=== PATIENT | female | born 1955 | race Two or more races ===

== ENCOUNTER 2021-09-04 14:10 | Inpatient (IN) | payer OTHER ==
[~2021-09-04] VITALS: Ht 154.9 cm; Wt 102.5 kg
--- NOTE | 2021-09-04 14:15 | NUR ---
Recived pt 65 yrs female came from home accommpay by christina c/o dizzness sarted yesterday no weekness or difficety Seen by dr. yen EKG done
--- NOTE | 2021-09-04 14:44 | NUR ---
blood drow by lab tach
[2021-09-04] MEDS ORDERED: IV NS 0.9% 1,000 ML BAG IV ONE (15:00)
[2021-09-04] MEDS ORDERED: MECLIZINE HCL 12.5 MG TABLET PO ONE ×2 (15:00→17:00)
[2021-09-04] MEDS ORDERED: MECLIZINE HCL 25 MG TABLET ONE ×2 (15:08→17:49)
[2021-09-04 15:12] LABS: BASOPHILS # (AUTO) 0.1 K/uL (0.0-0.2); BASOPHILS % (AUTO) 0.7 % (0.0-2.0); EOSINOPHILS % (AUTO) 0.8 % (0.0-6.0); HEMATOCRIT 31 % (33-45); HEMOGLOBIN 10.5 g/dL (11.5-14.8); LYMPHOCYTES % (AUTO) 20.4 % (20.0-44.0); MEAN CORPUSCULAR HGB CONC 34 g/dl (31.0-36.0); MEAN CORPUSCULAR VOLUME 88 fL (82-100); MONOCYTES # (AUTO) 0.6 K/uL (0.1-1.30); MONOCYTES % (AUTO) 6.5 % (2.0-12.0); NEUTROPHILS # (AUTO) 6.9 K/uL (1.8-8.9); NEUTROPHILS % (AUTO) 71.6 % (43.0-81.0); PLATELET COUNT (AUTO) 337 K/uL (150-450); RED BLOOD CELL COUNT(AUTO) 3.48 MIL/uL (4.0-5.2); WHITE BLOOD COUNT (AUTO) 9.6 K/uL (4.3-11.0)
--- NOTE | 2021-09-04 15:15 | NUR ---
ct scan done of head no dizzness or dicomort at this time
[2021-09-04 15:41] LABS: CALCIUM, SERUM 8.7 mg/dL (8.5-10.1); CARBON DIOXIDE 26 mmol/L (21-32); CHLORIDE 97 mmol/L (98-107); CREATININE 1.1 mg/dL (0.6-1.3); GLUCOSE 283 mg/dL (74-106); POTASSIUM 3.6 mmol/L (3.5-5.1); SODIUM SERUM 135 mmol/L (136-145); UREA NITROGEN, BLOOD 18 mg/dL (7-18)
[2021-09-04 15:46] LABS: ALANINE AMINOTRANSFERASE 23 U/L (12-78); ALBUMIN 3.5 g/dL (3.4-5.0); ALKALINE PHOSPHATASE 73 U/L (46-116); ASPARTATE AMINOTRANSFERASE 10 U/L (15-37); BILIRUBIN,TOTAL 0.2 mg/dL (0.2-1.0); TOTAL PROTEIN, SERUM 7.5 g/dL (6.4-8.2)
--- NOTE | 2021-09-04 16:21 | NUR ---
pt condition stable no pain dizzneses come and goses
--- NOTE | 2021-09-04 16:56 | NUR ---
winstonte to concepcion shannon cloudy color ua send to lab
[2021-09-04 17:55] LABS: BILIRUBIN,URINE NEGATIVE (NEGATIVE); COLOR,URINE YELLOW (YELLOW); LEUKOCYTE ESTERASE ,URINE NEGATIVE (NEGATIVE); NITRITE, URINE NEGATIVE (NEGATIVE); PROTEIN,URINE NEGATIVE (NEGATIVE); UGLUCOSE >=1000 mg/dL (NEGATIVE); UROBILINOGEN,URINE 0.2 EU/dL (0.2)
[2021-09-04 18:17] LABS: BACTERIA,URINE None seen /HPF (None Seen); RBC,URINE 0-2 /HPF (0-2); WBC,URINE 0-2 /HPF (0-3)
--- NOTE | 2021-09-04 18:25 | NUR ---
c/o dizzness not resolve revaluated by examine pt spook with pt and kaelyner vs stable
--- NOTE | 2021-09-04 19:29 | NUR ---
vs fourth hand off to SWAPNIL RN AT BED side
--- NOTE | 2021-09-04 19:41 | NUR ---
PT IS RESTING COMFORTABLY IN BED, DENIES ANY PAIN AT TIME. PT STATES SHE STILL FEELS DIZZY , WILL NOTIFY .
--- NOTE | 2021-09-04 19:41 | NUR ---
RECEIVED REPORT FROM ANGEL REYNAGA FOR DEANGELO
--- NOTE | 2021-09-04 19:42 | NUR ---
COVID ANTIGEN SWAB COLLECTED AND SENT TO LAB
--- NOTE | 2021-09-04 21:13 | NUR ---
ASSIGNED TO 309-2
--- NOTE | 2021-09-04 21:51 | NUR ---
REPORT GIVEN TO EVAN REYNAGA FOR DEANGELO
[2021-09-04] MEDS ORDERED: ONDANSETRON HCL/PF 4 MG/2 ML VIAL IVP PRN (22:00)
[2021-09-04] MEDS ORDERED: ACETAMINOPHEN 325 MG TABLET PO PRN (22:00)
[2021-09-04] MEDS ORDERED: Z GUARD REMEDY 4 OZ OINT TP PRN (22:00)
[2021-09-04] MEDS ORDERED: ENOXAPARIN SODIUM 40 MG/0.4 ML DISP.SYRIN SQ SCH (22:00)
[2021-09-04] MEDS ORDERED: MECLIZINE HCL 12.5 MG TABLET PO PRN (22:00)
[2021-09-04] MEDS ORDERED: DIAZEPAM 5 MG TABLET PO PRN (22:00)
[2021-09-04] MEDS ORDERED: DEXTROSE 50%-WATER 50 ML DISP.SYRIN IV PRN (22:00)
[2021-09-04] MEDS ORDERED: AMLO-213 PO (22:01)
[2021-09-04] MEDS ORDERED: METF-442 PO (22:01)
[2021-09-04] MEDS ORDERED: LOSA100T31 PO (22:01)
[2021-09-04] MEDS ORDERED: HYDR25TA4 PO (22:01)
[2021-09-04] MEDS ORDERED: INSU100V7 SQ (22:01)
[2021-09-04] MEDS ORDERED: INSU100C10 SQ (22:01)
[2021-09-04] MEDS: BLOOD SUGAR DIAGNOSTIC 1 EACH STRIP IN SCH (22:49)
[2021-09-04] MEDS: INSULIN REGULAR, HUMAN 100 UNIT/ML 3 ML VIAL SQ PRN (22:51)
[2021-09-04] MEDS: IV NS 0.9% 1,000 ML IV PRN (22:55)
[2021-09-04 23:00] VITALS: BP 142/73
--- NOTE | 2021-09-04 23:27 | NUR ---
MS/TELE/RN RECEIVED PATIENT FROM [facility] BY SIMONESO AT AROUND 2200. PATIENT WAS AWAKE, ALERT, AND ORIENTED, COMFORTABLE, NO C/O PAIN, NO DISTRESS NOTED, WITH MILD DIZZINESS. APPLIED TELE BOX MONITOR, SINUS RHYTHM, ADMISSION DONE, PHYSICAL ASSESSMENT DONE, TAUGHT THE USE OF CALL LIGHT, VERBALISED UNDERSTANDING, AND PLACED IT AT BEDSIDE WITHIN REACH, PLAN OF CARE DISCUSSED, VERBALISED UNDERSTANDING AND AGREEMENT, MD ORDERS CARRIED OUT, FALL RISK SECONDARY TO DIZZINESS, FALL PRECAUTIONS PER PROTOCOL IMPLEMENTED, ALL NEEDS ATTENDED, WILL MONITOR.
[2021-09-05] VITALS: BP 134/74
--- NOTE | 2021-09-05 00:54 | NUR ---
MS/TELE/RN PATIENT IS SLEEPING AT THIS TIME, APPEAR COMFORTABLE, NO SIGNS OF DISTRESS NOTED, CALL LIGHT IN REACH, WILL CONTINUE TO MONITOR.
[2021-09-05 04:00] VITALS: BP 130/65
[2021-09-05 06:32] LABS: BASOPHILS % (AUTO) 0.6 % (0.0-2.0); EOSINOPHILS % (AUTO) 2.6 % (0.0-6.0); HEMATOCRIT 29 % (33-45); HEMOGLOBIN 9.9 g/dL (11.5-14.8); LYMPHOCYTES # (AUTO) 2.8 K/uL (0.8-4.8); MEAN CORPUSCULAR HGB CONC 34 g/dl (31.0-36.0); MEAN CORPUSCULAR VOLUME 88 fL (82-100); MONOCYTES # (AUTO) 0.5 K/uL (0.1-1.30); MONOCYTES % (AUTO) 6.7 % (2.0-12.0); NEUTROPHILS # (AUTO) 3.5 K/uL (1.8-8.9); NEUTROPHILS % (AUTO) 50.1 % (43.0-81.0); PLATELET COUNT (AUTO) 319 K/uL (150-450); RED BLOOD CELL COUNT(AUTO) 3.35 MIL/uL (4.0-5.2); WHITE BLOOD COUNT (AUTO) 6.9 K/uL (4.3-11.0)
[2021-09-05] MEDS: INSULIN REGULAR, HUMAN 100 UNIT/ML 3 ML VIAL SQ PRN ×2 (06:49→11:37)
[2021-09-05] MEDS: BLOOD SUGAR DIAGNOSTIC 1 EACH STRIP IN SCH ×2 (06:49→11:35)
--- NOTE | 2021-09-05 06:53 | NUR ---
MS/TELE/RN PATIENT IS AWAKE, ALERT, ORIENTED, NO CHANGE IN CONDITION, ALL NEEDS ATTENDED AT THIS TIME, WILL CONTINUE TO MONITOR.
[2021-09-05 07:08] LABS: CALCIUM, SERUM 8.2 mg/dL (8.5-10.1); CREATININE 0.9 mg/dL (0.6-1.3); PHOSPHORUS 3.8 mg/dL (2.5-4.9); POTASSIUM 3.9 mmol/L (3.5-5.1)
[2021-09-05] MEDS ORDERED: MECL-182 PO (07:20)
--- NOTE | 2021-09-05 07:30 | NUR ---
TELE/RN RECEIVED PATIENT IN BED AWAKE. PATIENT IS ALERT, AND ORIENTED TIMES 4, ARMENIAN SPEAKER AND LITTLE [place]INHAL[place] SPEAKER. NO C/O PAIN, NO DISTRESS NOTED, WITH MILD DIZZINESS. ON TELE MONITOR . IV SITE ON RIGHT HAND #20 INTACT. ASKED PATIENT TO USE CALL LIGHT WHEN IN NEED TO PREVENT FALL. FALL RISK SECONDARY TO DIZZINESS, FALL PRECAUTIONS PER PROTOCOL IMPLEMENTED, BED IN THE LOWEST POSITION AND LOCKED. CALL LIGHT AND TABLE IN REACH.WILL CONTINUE TO MONITOR. MONITOR.
[2021-09-05 07:42] LABS: MAGNESIUM 1.2 mg/dL (1.8-2.4)
[2021-09-05] MEDS: Magnesium 1GM/D5W 100ML PREMIX 100 ML IV SCH ×4 (08:13→12:58)
[2021-09-05 08:34] VITALS: BP 159/62
[2021-09-05 08:35] LABS: THYROID STIMULATING HORMONE 1.942 uIU/mL (0.358-3.74)
[2021-09-05 12:07] VITALS: BP 137/69
[2021-09-05] MEDS: IV NS 0.9% 1,000 ML IV PRN (13:05)
[2021-09-05 16:17] VITALS: BP 162/69
--- NOTE | 2021-09-05 16:44 | NUR ---
RN NOTES DISCHARGE PATIENT IN STABLE CONDITION. VITAL SIGNS IN STABLE . ALL THE BELONGINGS ACCOUNTED AND SIGNED FOR. DISCHARGE INSTRUCTIONS GIVEN TO THE PATIENT. PATIENT VERBALIZED UNDERSTANDING. NAME BAND REMOVED. IV SITE REMOVED AND COVERED WITH DRY DRESSING. NO BLEEDING NOTED. CARMEN WHEELED THE PATIENT TO THE LOBBY. PATIENT LEFT HOSPITAL IN STABLE CONDITION. MD AND CHARGE NURSE AWARE OF THE DISCHARGE.
== END 2021-09-05 17:00 | disposition home or self-care (01) | DRG 111 ==
LOC: ER 14:14 → TELE 21:15
PROVIDERS: ADMIT Nurse Practitioner Acute Care; ATTEND Family Medicine
DX: H81.10 Benign paroxysmal vertigo, unspecified ear (principal); D63.8 Anemia in other chronic diseases classified elsewhere; E87.1 Hypo-osmolality and hyponatremia; E86.1 Hypovolemia; E11.65 Type 2 diabetes mellitus with hyperglycemia; Z20.822 Contact with and (suspected) exposure to COVID-19; E66.01 Morbid (severe) obesity due to excess calories; I10 Essential (primary) hypertension; N60.02 Solitary cyst of left breast; N83.202 Unspecified ovarian cyst, left side; Z68.41 Body mass index [BMI] 40.0-44.9, adult
CPT/HCPCS: 36415; 70450-TC; 71045-TC; 80048-TC; 80061-TC; 80076-TC; 81001; 82962-TC; 83735-TC; 84100-TC; 84443-TC; 84484-TC; 85025-TC; 87081-TC; C9803; G0378; J1650; J1815; J3475; J7030; J7050; J8597